=== PATIENT | female | born 1975 | race Caucasian/White ===

== ENCOUNTER → 2017-04-25 | Outpatient (CLI) | payer OTHER ==
[~2017-04-25] MED LIST: CLON1TAB PO; CYCL1TAB29 PO; HYDR-3580 PO; MSM1000C PO; OXYC1TAB63 PO; TRAZ50TA12 PO
[2017-04-25 13:43] LABS: AUTOMATED NEUTROPHIL # 3.7 TH/MM3 (1.8-7.7); BASOPHIL % 0.3 % (0.0-2.0); EOSINOPHIL # 0.1 TH/MM3 (0-0.4); EOSINOPHIL % 1.9 % (0.0-4.0); HEMATOCRIT 38.8 % (35.0-46.0); HEMO FLAGS DIFF FINAL; LYMPH % 22.2 % (9.0-44.0); LYMPHOCYTE # 1.2 TH/MM3 (1.0-4.8); MEAN CELL VOLUME 93.7 FL (80.0-100.0); MEAN CORPUSCULAR HEMOGLOBIN 31.1 PG (27.0-34.0); MEAN CORPUSCULAR HGB CONC 33.2 % (32.0-36.0); NEUT % 67.6 % (16.0-70.0); PLATELET COUNT 244 TH/MM3 (150-450); RED BLOOD COUNT 4.13 MIL/MM3 (4.00-5.30); RED CELL DISTRIBUTION WIDTH 13.6 % (11.6-17.2); WHITE BLOOD COUNT 5.5 TH/MM3 (4.0-11.0)
[2017-04-25 13:46] LABS: BLOOD, URINE TRACE (NEG); COMMENT (UR) CULT NOT INDICATED; CULTURE IF INDICATED CULT NOT INDICATED; GLUCOSE,URINE NEG (NEG); KETONE, URINE NEG (NEG); MUCUS URINE FEW /lpf (OCC); NITRITE,URINE NEG (NEG); URINE COLOR LIGHT-YELLOW (YELLW/STRAW)
[2017-04-25 14:12] LABS: BICARBONATE 28.1 MEQ/L (21.0-32.0)
--- NOTE | 2017-04-26 08:37 | EKG ---
Date Performed: 04/25/2017 Time Performed: 13:43:19 PTAGE: 41 years EKG: Sinus rhythm INDETERMINATE AXIS RIGHT BUNDLE BRANCH BLOCK ABNORMAL ECG NO PREVIOUS TRACING DOCTOR: Justin Lopez Interpretating Date/Time 04/26/2017 08:36:23
== END ==
LOC: CPRE 13:14
PROVIDERS: ATTEND Orthopaedic Surgery Orthopaedic Surgery of the Spine
DX: Z01.810 Encounter for preprocedural cardiovascular examination (principal); Z01.812 Encounter for preprocedural laboratory examination; M50.320 Other cervical disc degeneration, mid-cervical region, unspecified level; M48.02 Spinal stenosis, cervical region; R94.31 Abnormal electrocardiogram [ECG] [EKG]
CPT/HCPCS: 36415; 80048; 81001; 85025; 93005

== ENCOUNTER 2017-04-27 14:59 | Inpatient (IN) | payer OTHER ==
[~2017-04-27] VITALS: Ht 175.3 cm; Wt 69.0 kg
[~2017-04-27 14:59] MED LIST changes: -OXYC1TAB63 PO
[2017-05-01] MEDS ORDERED: ceFAZolin 2 GM PREMIX 50 ML ONE (07:08)
[2017-05-01] MEDS ORDERED: VANCOMYCIN HCL 1000 MG VIAL ONE (07:08)
[2017-05-01] MEDS ORDERED: VANCOMYCIN 1000 MG/NS 250 ML (for <70 kg) IV SCH ×2 (07:15)
[2017-05-01] MEDS ORDERED: POVIDONE IODINE 5% (ANTISEPSIS KIT) 4 APPLICATIONS EACH NARE PRN (07:15)
[2017-05-01] MEDS ORDERED: METOPROLOL TARTRATE 25 MG TAB PO PRN (07:15)
[2017-05-01] MEDS ORDERED: LACTATED RINGER'S 1000 ML IV PRN (07:15)
[2017-05-01] MEDS ORDERED: POVIDONE IODINE 7.5% SCRUB 118 ML BOTTLE TOPICAL SCH (07:15)
[2017-05-01] MEDS ORDERED: ceFAZolin 2 GM PREMIX 50 ML IV SCH (07:15)
[2017-05-01] MEDS ORDERED: CHLORHEXIDINE GLUCONATE 2 % 1 PACK (2 CLOTHS) TOPICAL PRN (07:15)
[2017-05-01] MEDS ORDERED: INSULIN HUMAN REGULAR 1,000 UNITS/10 ML VIAL SQ PRN (07:15)
[2017-05-01] MEDS ORDERED: SODIUM CHLORID 0.9% 500 ML IV PRN (07:15)
[2017-05-01] MEDS ORDERED: GENTAMICIN SULFATE 80 MG/2 ML VIAL ONE (07:29)
[2017-05-01] MEDS ORDERED: GELFOAM SIZE 100 ONE (07:30)
[2017-05-01] MEDS ORDERED: DEXAMETHASONE SOD PHOS 4 MG/ML VIAL ONE (08:09)
[2017-05-01] MEDS ORDERED: ACETAMINOPHEN 1000 MG/100 ML 100 ML IV ONE (08:09)
[2017-05-01] MEDS ORDERED: MIDAZOLAM HCL 2 MG/2 ML VIAL ONE (08:09)
[2017-05-01] MEDS ORDERED: KETAMINE HCL 500 MG/5 ML VIAL ONE (08:46)
--- NOTE | 2017-05-01 09:25 | MH ---
cc: SAMUEL COUCH M.D. DATE OF ADMISSION: 05/01/2017 ADMISSION DIAGNOSIS Degenerative disc disease cervical spine with cervical spinal stenosis. HISTORY OF PRESENT ILLNESS This is a 41-year-old female with significant neck and arm pain. Investigative study shows evidence of osteophyte disc complex at multiple levels including C4-5, C5-6 and C6-7. The patient is developing a significant cervical radiculopathy and cervical stenosis. She presents for staged posterior cervical fusion anticipating a delayed anterior cervical fusion with decompression of C4-C7. PAST MEDICAL HISTORY, SOCIAL HISTORY, FAMILY HISTORY AND REVIEW OF SYSTEMS: See attached notes. PHYSICAL EXAMINATION GENERAL: An average-built female appearing her stated age. HEENT: Normocephalic, atraumatic. Pupils equal, round, reactive to light and accommodation. Extraocular muscles intact. NECK: Supple. CHEST: Clear. HEART: Regular rate and rhythm. ABDOMEN: Soft, nontender. Normoactive bowel sounds. MUSCULOSKELETAL: Cervical spine range of motion is restricted. Positive Spurling's maneuver bilaterally. Motor examination--see attached records. IMPRESSION 1. Cervical spinal stenosis. 2. Osteophyte disc complex C4-C7. 3. Bilateral cervical radiculopathy. PLAN Posterior cervical fusion C4-5, C5-6, C6-7, interfacet cages, segmental instrumentation, iliac crest bone grafting. CONSENT There are risks of surgery including infection, bleeding, loss of motion, continued pain, need for further surgery, neurologic and vascular injury. The patient's understands these risks and wishes to press on with surgery as outlined above. MD ASHLEIGH Casanova/ACE /7:00 AM /9:18 AM
[2017-05-01] MEDS ORDERED: LACTATED RINGER'S 1000 ML INJ 1,000 ML IV SCH (11:52)
[2017-05-01] MEDS ORDERED: PHENYLEPH/NS 1000 MCG/10 ML SYR IV ONE (12:00)
[2017-05-01] MEDS ORDERED: NEOSTIGMINE 3 MG/3 ML SYR IV ONE (12:00)
[2017-05-01] MEDS ORDERED: NORMOSOL R INJ 1,000 ML IV ONE (12:00)
[2017-05-01] MEDS ORDERED: Post-op Orders (for Pharmacy) MISC XX ONE ×2 (12:00→13:00)
[2017-05-01] MEDS ORDERED: MORPHINE SULFATE 4 MG/ML INJ IV PUSH PRN (12:00)
[2017-05-01] MEDS ORDERED: BISACODYL 10 MG SUPP PR PRN (12:00)
[2017-05-01] MEDS ORDERED: SODIUM CHLORIDE 0.9% FLUSH 5 ML FLUSH IVF PRN ×2 (12:00→12:15)
[2017-05-01] MEDS ORDERED: ONDANSETRON HCL 4 MG/2 ML VIAL IV PRN ×2 (12:00→13:00)
[2017-05-01] MEDS ORDERED: traZODone HCL 50 MG TAB PO PRN ×2 (12:00→13:00)
[2017-05-01] MEDS ORDERED: CARISOPRODOL 350 MG TAB PO PRN ×2 (12:00→13:00)
[2017-05-01] MEDS ORDERED: PROPOFOL 200 MG/20 ML AMP IV ONE (12:00)
[2017-05-01] MEDS ORDERED: ONDANSETRON HCL 4 MG/2 ML VIAL IV PUSH ONE (12:00)
[2017-05-01] MEDS ORDERED: oxyCODONE/ACETAMINOPHEN 5 MG/325 MG TAB PO PRN ×4 (12:00→13:00)
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
[2017-05-01] MEDS ORDERED: OXYC1TAB63 PO (12:06)
[2017-05-01] MEDS ORDERED: DO NOT ADM ANY ANTICOAGULANT DRUGS PRN (12:23)
[2017-05-01] MEDS ORDERED: MORPHINE SULFATE 4 MG/ML INJ ONE (12:33)
[2017-05-01] MEDS ORDERED: *morphine SULFATE 8 MG/ML PERIprocedure ONLY ONE ×2 (12:35→12:53)
[2017-05-01] MEDS: LACTATED RINGER'S 1000 ML INJ 1,000 ML IV SCH (12:56)
[2017-05-01] MEDS ORDERED: CYCLOBENZAPRINE HCL 10 MG TAB PO SCH (13:00)
[2017-05-01] MEDS ORDERED: clonazePAM 1 MG TAB PO SCH (13:00)
[2017-05-01] MEDS ORDERED: BISACODYL 10 MG SUPP RECTAL PRN (13:00)
[2017-05-01] MEDS ORDERED: *HYDROmorphone PF 1 MG VIAL PERIprocedural Use ONLY ONE (13:38)
[2017-05-01 15:10] VITALS: BP 141/82; PULSE 87; RESP 16; TEMP 96; O2SAT 98
[2017-05-01] MEDS: MORPHINE SULFATE 4 MG/ML INJ IV PUSH PRN ×3 (16:11→23:28)
[2017-05-01] MEDS: CYCLOBENZAPRINE HCL 10 MG TAB PO SCH (17:32)
[2017-05-01] MEDS: clonazePAM 1 MG TAB PO SCH (17:32)
--- NOTE | 2017-05-01 17:56 | RADRPT ---
EXAM DATE/TIME: 05/01/2017 11:42 [facility] COMPARISON: No previous studies available for comparison. INDICATIONS : C4-C7 Posterior cervical fusion. MEDICAL HISTORY : Osteoarthritis. Smoker. SURGICAL HISTORY : section. ENCOUNTER: Initial ACUITY: 1 day PAIN SCORE: Non-responsive. LOCATION: Cervical spine. FINDINGS: C-arm matrix views AP and lateral reviewed. There is degenerative disc disease with narrowing of C5-6 intervertebral disc space and anterior spurring at this level as well as C6-7. Lateral mass plates a re noted bilaterally across the facets at C3, C4, and C5. CONCLUSION: Postsurgical changes as described George Haider MD on May 01, 2017 at 17:53 Board Certified Radiologist. This report was verified electronically.
[2017-05-01 19:00] VITALS: BP 128/82; PULSE 89; RESP 17; TEMP 97.3; O2SAT 96
[2017-05-01] MEDS: SODIUM CHLORIDE 0.9% FLUSH 5 ML FLUSH IVF SCH (20:08)
[2017-05-01] MEDS ORDERED: SODIUM CHLORIDE 0.9% FLUSH 5 ML FLUSH IVF SCH (21:00)
[2017-05-01 22:37] VITALS: O2SAT 98
[2017-05-02] VITALS: BP 138/87; PULSE 81; RESP 16; TEMP 96.8; O2SAT 100
[2017-05-02] MEDS: LACTATED RINGER'S 1000 ML INJ 1,000 ML IV SCH (00:06)
[2017-05-02] MEDS: MORPHINE SULFATE 4 MG/ML INJ IV PUSH PRN ×2 (02:29→10:18)
[2017-05-02 07:54] VITALS: BP 120/68; PULSE 93; RESP 18; TEMP 96.9; O2SAT 97
--- NOTE | 2017-05-02 07:58 | PD.ORT.PN ---
Subjective Subjective Remarks Complains of moderate neck pain. No arm pain. Ambulating without difficulty. Wearing her brace Objective Vitals Vital Signs Date Time Temp Pulse Resp B/P (MAP) Pulse Ox O2 Delivery O2 Flow Rate FiO2 05/02/17 07:54 96.9 93 18 120/68 (85) 97 05/02/17 07:25 Room Air 05/02/17 04:23 18 05/02/17 02:54 18 05/02/17 00:00 96.8 81 16 138/87 (104) 100 05/01/17 22:37 98 05/01/17 19:00 97.3 89 17 128/82 (97) 96 05/01/17 16:58 77 16 123/71 (88) 98 Room Air 05/01/17 16:45 77 16 122/68 (86) 98 Room Air 05/01/17 15:45 75 16 121/68 (85) 97 Room Air 05/01/17 15:10 96.0 87 16 141/82 (101) 98 05/01/17 14:45 80 16 122/74 (90) 94 Room Air 05/01/17 13:45 69 16 127/76 (93) 100 Nasal Cannula 2 05/01/17 13:30 84 16 129/80 (96) 100 Nasal Cannula 2 05/01/17 13:15 85 16 136/89 (105) 100 Nasal Cannula 2 05/01/17 13:00 79 16 131/86 (101) 100 Nasal Cannula 2 05/01/17 12:45 77 16 130/84 (99) 100 Nasal Cannula 2 05/01/17 12:23 97.4 100 16 129/85 (100) 97 Nasal Cannula 2 I/O 05/01/17 05/01/17 05/01/17 05/02/17 05/02/17 05/02/17 07:00 15:00 23:00 07:00 15:00 23:00 Intake Total 1722 ml 250 ml Output Total 1000 ml Balance -1000 ml 1722 ml 250 ml Intake Oral 600 ml 250 ml IV Total 1122 ml Output Urine Total 1000 ml # Voids 5 2 # Bowel Movements 0 0 Objective Remarks Motor exam 5/5. Dressing dry. Brace fits well. Sensation normal both arms Assessment & Plan Ortho Post Op Day #: 1 Problem List: Assessment and Plan Osteophyte disc complex cervical spine C4 5, C5 6, C6 7. Bilateral cervical radiculopathy. Surgery: Posterior cervical fusion C4 to C7, intraoperative facet cages, iliac crest bone graft. PLAN: Discharge to home [place] for pain Full-time brace wear Planned readmission in 2 weeks for ACDF C4 5, C5 6, C6 7 Michel Driver MD May 02, 2017 07:58
[2017-05-02] MEDS ORDERED: METHYLSULFONYLMETHANE 1000 MG PO SCH ×2 (09:00)
[2017-05-02] MEDS ORDERED: MULTIVITAMINS/MINERALS THERAPEUTIC TAB PO SCH ×2 (09:00)
[2017-05-02] MEDS: SODIUM CHLORIDE 0.9% FLUSH 5 ML FLUSH IVF SCH (09:00)
[2017-05-02] MEDS ORDERED: DOCUSATE SODIUM 100 MG CAP PO SCH ×2 (09:00)
[2017-05-02] MEDS: CYCLOBENZAPRINE HCL 10 MG TAB PO SCH (09:18)
[2017-05-02] MEDS: clonazePAM 1 MG TAB PO SCH (09:18)
[2017-05-02 10:15] VITALS: O2SAT 98
--- NOTE | 2017-05-02 11:48 | HHI.DCPOC ---
Discharge Care Plan Diagnosis: (1) Cervical spinal stenosis (2) Cervical radicular pain Your Health Problems Are: Incision/Drains Swelling Goals to Promote Your Health * To prevent worsening of your condition and complications * To maintain your health at the optimal level Directions to Meet Your Goals Take your medications as prescribed Follow your dietary instruction Follow activity as directed Keep your appointments as scheduled Take your immunizations and boosters as scheduled If your symptoms worsen call your PCP, if no PCP go to Urgent Care Center or Emergency Room Smoking is Dangerous to Your Health. Avoid second hand smoke Call the 24-hour hour crisis hotline for domestic abuse at [facility] May 02, 2017 11:48
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
== END 2017-05-02 10:56 | disposition home or self-care (01) | DRG 473 ==
LOC: HSDI 14:59 → UNDOADMOB 05-01 06:33 → HSDI 05-01 06:33 → INTOOBSV 05-01 06:33 → EDUNIT# 05-01 09:00 → N06B 05-01 17:11 → OBSVTOIN 05-01 18:18
PROVIDERS: ADMIT Orthopaedic Surgery Orthopaedic Surgery of the Spine; ATTEND Orthopaedic Surgery Orthopaedic Surgery of the Spine
PROC: 0RG2071 Fusion of 2 or more Cervical Vertebral Joints with Autologous Tissue Substitute, Posterior Approach, Posterior Column, Open Approach (ICD-10-PCS; 2017-05-01)
PROC: 0QB30ZZ Excision of Left Pelvic Bone, Open Approach (ICD-10-PCS; 2017-05-01)
PROC: 0RG20A1 (ICD-10-PCS; principal; 2017-05-01 09:13)
DX: M50.121 Cervical disc disorder at C4-C5 level with radiculopathy (principal); F32.9 Major depressive disorder, single episode, unspecified; M48.02 Spinal stenosis, cervical region; M25.78 Osteophyte, vertebrae; Z72.0 Tobacco use
CPT/HCPCS: 72040; 76000; 94150; C1713; J0131; J0690; J1100; J1170; J1580; J2250; J2270; J2370; J2405; J2710; J3010; J3370; J7050; J7120

== ENCOUNTER 2017-05-17 05:51 | Inpatient (IN) | payer OTHER ==
[~2017-05-17] VITALS: Ht 175.3 cm; Wt 70.4 kg
[~2017-05-17 05:51] MED LIST changes: -CYCL1TAB29 PO; +OXYC1TAB63 PO
[2017-05-17] MEDS ORDERED: POVIDONE IODINE 5% (ANTISEPSIS KIT) 4 APPLICATIONS EACH NARE PRN (06:15)
[2017-05-17] MEDS ORDERED: CHLORHEXIDINE GLUCONATE 4% SOLN 120 ML BTL TOPICAL SCH (06:15)
[2017-05-17] MEDS ORDERED: METOPROLOL TARTRATE 25 MG TAB PO PRN (06:15)
[2017-05-17] MEDS ORDERED: LACTATED RINGER'S 1000 ML IV PRN (06:15)
[2017-05-17] MEDS ORDERED: ceFAZolin 2 GM PREMIX 50 ML IV SCH (06:15)
[2017-05-17] MEDS ORDERED: VANCOMYCIN 1000 MG/NS 250 ML (for <70 kg) IV SCH ×2 (06:15)
[2017-05-17] MEDS ORDERED: CHLORHEXIDINE GLUCONATE 2 % 1 PACK (2 CLOTHS) TOPICAL PRN (06:15)
[2017-05-17] MEDS ORDERED: INSULIN HUMAN REGULAR 1,000 UNITS/10 ML VIAL SQ PRN (06:15)
[2017-05-17] MEDS ORDERED: SODIUM CHLORID 0.9% 500 ML IV PRN (06:15)
[2017-05-17] MEDS ORDERED: GENTAMICIN SULFATE 80 MG/2 ML VIAL ONE (06:24)
[2017-05-17] MEDS ORDERED: BUPIVACAINE/EPINEPHRINE 0.25% 50 ML VIAL ONE (06:24)
[2017-05-17] MEDS ORDERED: HYDROmorphone HCL PF 2 MG/ML VIAL ONE (06:30)
[2017-05-17] MEDS ORDERED: FAMOTIDINE 20 MG/2 ML VIAL ONE (07:20)
[2017-05-17] MEDS ORDERED: DEXAMETHASONE SOD PHOS 4 MG/ML VIAL ONE (07:20)
[2017-05-17] MEDS ORDERED: APREPITANT 40 MG CAP ONE (07:20)
[2017-05-17] MEDS ORDERED: ALUMINUM/MAGNESIUM/SIMETH 30 ML CUP PO PRN (11:45)
[2017-05-17] MEDS ORDERED: traZODone HCL 50 MG TAB PO PRN (11:45)
[2017-05-17] MEDS ORDERED: PROMETHAZINE INJ 25 MG/ML VIAL IM PRN (11:45)
[2017-05-17] MEDS ORDERED: Post-op Orders (for Pharmacy) MISC XX ONE (11:45)
[2017-05-17] MEDS ORDERED: ONDANSETRON HCL 4 MG/2 ML VIAL IV PRN (11:45)
[2017-05-17] MEDS ORDERED: SODIUM CHLORIDE 0.9% FLUSH 5 ML FLUSH IVF PRN (11:45)
[2017-05-17] MEDS ORDERED: oxyCODONE/ACETAMINOPHEN 7.5 MG/325 MG TAB PO PRN (11:45)
[2017-05-17] MEDS ORDERED: DO NOT ADM ANY ANTICOAGULANT DRUGS PRN (11:46)
[2017-05-17] MEDS ORDERED: PROPOFOL 200 MG/20 ML AMP IV ONE ×2 (12:00)
[2017-05-17] MEDS ORDERED: NEOSTIGMINE 3 MG/3 ML SYR IV ONE (12:00)
[2017-05-17] MEDS ORDERED: MIDAZOLAM HCL 2 MG/2 ML VIAL IV ONE (12:00)
[2017-05-17] MEDS ORDERED: ROCURONIUM INJ 50 MG/5 ML VIAL IV ONE (12:00)
[2017-05-17] MEDS: SODIUM CHLORIDE 0.9% FLUSH 5 ML FLUSH IVF SCH ×2 (12:00→20:07)
[2017-05-17] MEDS ORDERED: ONDANSETRON HCL 4 MG/2 ML VIAL IV PUSH ONE (12:00)
[2017-05-17] MEDS ORDERED: LACTATED RINGER'S 1000 ML INJ 1,000 ML IV ONE (12:00)
[2017-05-17] MEDS ORDERED: LIDOCAINE HCL 1% PF 5 ML AMPULE OTHER ONE (12:00)
--- NOTE | 2017-05-17 12:07 | RADRPT ---
EXAM DATE/TIME: 05/17/2017 11:11 [facility] COMPARISON: Prior study 05/01/2017 used for comparison. INDICATIONS : Fusion. MEDICAL HISTORY : Osteoarthritis. Smoker. SURGICAL HISTORY : section. ENCOUNTER: Initial ACUITY: 1 day PAIN SCORE: Non-responsive. LOCATION: C-spine FINDINGS: Two view cervical spine demonstrates intraoperative placement of a anterior cervical fusion plate fro m C4 to C7. There is good alignment of the vertebral bodies and the hardware. CONCLUSION: Two view cervical spine demonstrates intraoperative placement of a anterior cervical fusion plate fro m C4 to C7. There is good alignment of the vertebral bodies and the hardware. David Noel MD on May 17, 2017 at 11:31 Board Certified Radiologist. This report was verified electronically.
[2017-05-17] MEDS: LACTATED RINGER'S 1000 ML INJ 1,000 ML IV SCH (12:20)
[2017-05-17] MEDS ORDERED: *morphine SULFATE 8 MG/ML PERIprocedure ONLY ONE ×3 (12:33→14:17)
[2017-05-17] MEDS: clonazePAM 1 MG TAB PO SCH ×2 (13:00→18:24)
[2017-05-17 15:10] VITALS: BP 108/72; PULSE 84; RESP 17; TEMP 96.3; O2SAT 96
[2017-05-17 16:47] VITALS: O2SAT 98
[2017-05-17] MEDS: MORPHINE SULFATE 4 MG/ML INJ IV PUSH PRN ×2 (20:07→23:03)
[2017-05-17 20:26] VITALS: O2SAT 96
[2017-05-17 20:36] VITALS: BP 117/74; PULSE 96; RESP 18; TEMP 97.3; O2SAT 99
[2017-05-18] MEDS: oxyCODONE/ACETAMINOPHEN 7.5 MG/325 MG TAB PO PRN ×2 (00:08→06:01)
[2017-05-18 00:22] VITALS: BP 114/71; PULSE 98; RESP 18; TEMP 97.9; O2SAT 99
[2017-05-18] MEDS: LACTATED RINGER'S 1000 ML INJ 1,000 ML IV SCH (00:30)
[2017-05-18] MEDS: MORPHINE SULFATE 4 MG/ML INJ IV PUSH PRN (04:00)
[2017-05-18 04:38] VITALS: BP 112/66; PULSE 78; RESP 18; TEMP 97; O2SAT 97
--- NOTE | 2017-05-18 07:09 | PD.ORT.PN ---
Subjective Subjective Remarks pt is doing very well ambulating the hall minimal neck pain, no arm or hip pain ready to be discharged Objective Vitals Vital Signs Date Time Temp Pulse Resp B/P (MAP) Pulse Ox O2 Delivery O2 Flow Rate FiO2 05/18/17 04:38 97.0 78 18 112/66 (81) 97 05/18/17 00:22 97.9 98 18 114/71 (85) 99 05/17/17 20:36 97.3 96 18 117/74 (88) 99 05/17/17 20:26 96 05/17/17 16:47 98 21 05/17/17 15:10 96.3 84 17 108/72 (84) 96 05/17/17 14:30 84 14 111/71 (84) 96 Room Air 05/17/17 13:30 80 10 109/69 (82) 94 Room Air 05/17/17 13:00 98.2 80 14 108/69 (82) 96 Room Air 05/17/17 12:50 12 05/17/17 12:45 81 12 107/68 (81) 97 Room Air 05/17/17 12:30 80 12 111/69 (83) 97 Room Air 05/17/17 12:15 81 14 105/67 (80) 98 Room Air 05/17/17 12:00 83 14 96/59 (71) 98 Room Air 05/17/17 11:44 97.0 90 16 96/55 (69) 100 Simple Mask 5 I/O 05/17/17 05/17/17 05/17/17 05/18/17 05/18/17 05/18/17 07:00 15:00 23:00 07:00 15:00 23:00 Intake Total 2180 ml 240 ml 240 ml Output Total 1250 ml Balance 930 ml 240 ml 240 ml Intake Oral 240 ml 240 ml IV Total 2180 ml Output Urine Total 1200 ml Estimated Blood Loss 50 ml # Voids 2 4 # Bowel Movements 0 0 Objective Remarks patient wasup ambulating pringle with walker [place] collar in place dressing dry and intact motor is +5/5 to UE Assessment & Plan Assessment and Plan POD # 1 s/p C4-7 ACDF Brook[place] collar x 8 weeks Percocet 5 mg rx in chart discharge home today orthopedically stable Jackson Driver MD May 18, 2017 07:09
[2017-05-18 08:00] VITALS: BP 103/65; PULSE 88; RESP 18; TEMP 97.4; O2SAT 99
[2017-05-18] MEDS: clonazePAM 1 MG TAB PO SCH (08:20)
[2017-05-18] MEDS: SODIUM CHLORIDE 0.9% FLUSH 5 ML FLUSH IVF SCH (08:20)
[2017-05-18] MEDS ORDERED: MULTIVITAMINS/MINERALS THERAPEUTIC TAB PO SCH (09:00)
--- NOTE | 2017-05-19 18:10 | MP ---
cc: JACKSON COUCH M.D., BRITTANY 0. MD DATE OF SURGERY: 05/17/2017. PREOPERATIVE DIAGNOSIS: 1. C4-5 central right-sided herniated nucleus pulposus. 2. C5-6 central right-sided herniated nucleus pulposus, osteophyte/disk complex, spinal stenosis, bilateral foraminal stenosis. 3. C6-7 central right-sided herniated nucleus pulposus, right-sided foraminal stenosis. 4. Cervical radiculitis with bilateral upper extremity weakness. 5. Cervical spine degenerative disc disease and osteoarthritis. POSTOPERATIVE DIAGNOSIS: 1. C4-5 central right-sided herniated nucleus pulposus. 2. C5-6 central right-sided herniated nucleus pulposus, osteophyte/disk complex, spinal stenosis, bilateral foraminal stenosis. 3. C6-7 central right-sided herniated nucleus pulposus, right-sided foraminal stenosis. 4. Cervical radiculitis with bilateral upper extremity weakness. 5. Cervical spine degenerative disc disease and osteoarthritis. OPERATIVE PROCEDURE PERFORMED: C4-5, C5-6, C6-7 interbody fusion, SpineNet ACC anterior cervical cage, SpineNet Rauscher anterior spinal instrumentation. SURGEON: Jackson Couch MD. SUPERVISOR TUBING: Colleen Aragon PA-C. SPECIMEN: None. ESTIMATED BLOOD LOSS: 50 cc for the entire case. COMPLICATIONS: None. ANESTHESIA: General. CONDITION: Stable. NOTE: My study assistant, Colleen Aragon PA-C, was present for the entire surgical case. She was medically necessary for the entire case because of the complexity of the case and to facilitate the performance of the procedure. The COMPUTER TECHNOLOGY TEACHER was at the back table and was not of the skill set for this case to manipulate the instruments; e.g., the multiple different types of soft tissue retractors, trial implants and permanent implants. DESCRIPTION OF THE PROCEDURE IN DETAIL: The patient was taken to the operating room and had satisfactory general endotracheal anesthesia by the department of anesthesia. Dr. Michel Couch and myself were co-surgeons. Dr. Michel Couch performed the neurodecompressive portion of the procedure at C4-5, C5-6 and C6-7 and also the left anterior iliac crest bone grafting. I was not present for his portion of the procedure. I performed the orthopedic fusion and spinal instrumentation and stabilization portion of the procedure. The end plates at C6-7 were prepared for fusion. The hyaline cartilage at the end plates was removed using angled curettes and burs. The 610 x 12 ACC cage was placed in the interspace. Anterior iliac crest bone graft was used for interbody fusion. This was done under fluoroscopic guidance. The end plates at C5-6 were prepared for fusion. The hyaline cartilage at the end plates was removed using angled curettes and burs. A 7 10 x 12 ACC cage was placed in the interspace. Anterior iliac crest bone grafting was used under fluoroscopic guidance for interbody fusion. The end plates at C4-5 were prepared for fusion. The hyaline cartilage at the end plates was removed using angled curettes and burs. A 6 10 x 12 ACC cage was placed in the interspace. Anterior crest bone graft was placed under fluoroscopic guidance for interbody fusion. Anterior osteophytes were removed using multiple types of rongeurs and a bur. [facility] anterior spinal plate was used. It was held in place with tack pins and also with a fixation screw. Intraoperative fluoroscopy in the AP and lateral plates and confirmed satisfactory position of the plate. Two screws were used in the vertebral bodies of C4, C5, C6 and C7. Each of the screws were drilled. Each screw was 14 mm in length and 4.0 mm in diameter fixed angle screws. Each screw was were drilled and the screws were inserted. Each screw head was appropriately locked to the plate. Intraoperative fluoroscopy in the AP and lateral planes confirmed satisfactory position of the bone graft at C4-5, C5-6 and C6-7. Satisfactory position of the ACC cages at C4-5, C5-6 and C6-7 and satisfactory anterior spinal instrumentation from C4-C7. The wound was irrigated with copious amounts of saline. The wound itself was dry. The wound was closed in routine manner with multiple 3-0 Vicryl sutures. The skin was approximated with running subcuticular 4-0 Vicryl. Sterile dressings were applied. The patient was placed in a Galvin cervical orthosis. The patient tolerated the procedure well and went to the recovery room in stable and satisfactory condition. MD NIKOLE Ivey/MAO /11:33 AM /5:53 PM MTDLion
== END 2017-05-18 10:34 | disposition home or self-care (01) | DRG 473 ==
LOC: HSDI 05:51 → EDUNIT# 11:00 → N06B 14:57
PROVIDERS: ADMIT Orthopaedic Surgery Orthopaedic Surgery of the Spine; ATTEND Orthopaedic Surgery Orthopaedic Surgery of the Spine
PROC: 0RG Upper Joints, Fusion (ICD-10-PCS; 2017-05-17)
PROC: 0QB33ZZ Excision of Left Pelvic Bone, Percutaneous Approach (ICD-10-PCS; 2017-05-17)
PROC: 0RB Upper Joints, Excision (ICD-10-PCS; 2017-05-17)
PROC: 0RG23A0 Fusion of 2 or more Cervical Vertebral Joints with Interbody Fusion Device, Anterior Approach, Anterior Column, Percutaneous Approach (ICD-10-PCS; principal; 2017-05-17 07:23)
DX: M50.121 Cervical disc disorder at C4-C5 level with radiculopathy (principal); M48.02 Spinal stenosis, cervical region; M50.122 Cervical disc disorder at C5-C6 level with radiculopathy; M50.123 Cervical disc disorder at C6-C7 level with radiculopathy; M19.90 Unspecified osteoarthritis, unspecified site
CPT/HCPCS: 72040; 76000; 94150; C1713; J0690; J1100; J1170; J1580; J2250; J2270; J2405; J2710; J3010; J3370; J7050; J7120; J8501